=== PATIENT | male | born 1935 | race Caucasian/White ===

== ENCOUNTER → 2017-07-08 | Outpatient (CLI) | payer MEDICARE, SELFPAY ==
[~2017-07-08] MED LIST: ASCO500 PO; ASPI81EC PO; ATEN25; ATOR10 PO; B Complex #11 EACH PO; B-121000 MC2 PO; BETA CAROTENE PO; CEPH500 PO; CIPR500 PO; CLIN300 PO; ELIQUIS5 MG PO; FINA5 PO; FISH OIL 1,2001 EACH PO; FLAX SEED OIL1000 MG PO; FURO40; FURO40 PO; GENTLE IRON PO; HYDACE5 PO; LEVSOD150 PO; LEVSOD175; LEVSOD175 PO; MAGOXI400 PO; METO25ER PO; NAPR500 PO; NITR100CA PO; POTCHL20ER PO; RXHYDACE PO; TAMS.4ER PO; VITAMIN D31000 UNIT PO; ZINC PO; [UNRECOGNIZED DRUG - OTHER]; [UNRECOGNIZED DRUG - REMARK]
== END ==
LOC: LAB EV 18:17
DX: N39.0 Urinary tract infection, site not specified (principal)
CPT/HCPCS: 87077; 87086; 87186

== ENCOUNTER → 2017-09-18 | Outpatient (CLI) | payer MEDICARE, SELFPAY ==
[~2017-09-18] MED LIST changes: -ASCO500 PO; -ATOR10 PO; -B Complex #11 EACH PO; -B-121000 MC2 PO; -BETA CAROTENE PO; -ELIQUIS5 MG PO; -FINA5 PO; -FISH OIL 1,2001 EACH PO; -FLAX SEED OIL1000 MG PO; -GENTLE IRON PO; -LEVSOD150 PO; -MAGOXI400 PO; +ROSU5 PO; -TAMS.4ER PO; -VITAMIN D31000 UNIT PO; -ZINC PO; -[UNRECOGNIZED DRUG - REMARK]
== END | disposition home or self-care (01) ==
LOC: LAB SHORT 11:00 → LAB EV 11:00
DX: R32 Unspecified urinary incontinence (principal)
CPT/HCPCS: 87077; 87086; 87186

== ENCOUNTER → 2017-12-02 | Outpatient (CLI) | payer MEDICARE, SELFPAY | END | disposition home or self-care (01) | LOC: LAB EV 17:47 → LAB SHORT 17:47 | DX: N39.0 Urinary tract infection, site not specified (principal) | CPT/HCPCS: 87077; 87086; 87186 ==

== ENCOUNTER 2018-01-04 11:18 | Inpatient (IN) | payer MEDICARE, SELFPAY ==
[~2018-01-04] VITALS: Ht 193 cm; Wt 104.5 kg
[~2018-01-04 11:18] MED LIST changes: +ATOR10 PO; -ROSU5 PO
[2018-01-04 11:47] LABS: BASOPHILS ABSOLUTE AUTO 0.01 K/mm3 (0.00-0.23); BASOPHILS PERCENT AUTO 0 % (0-2); EOSINOPHILS ABSOLUTE AUTO 0.06 K/mm3 (0.00-0.68); EOSINOPHILS PERCENT AUTO 1 % (0-6); Hematocrit 38.8 % (37.0-53.0); Hemoglobin 13.3 g/dL (13.5-17.5); IMMATURE GRAN ABSOLUTE AUTO 0.02 K/mm3 (0.00-0.10); IMMATURE GRAN PERCENT AUTO 0 % (0-1); LYMPHOCYTES ABSOLUTE AUTO 1.03 K/mm3 (0.84-5.20); LYMPHOCYTES PERCENT AUTO 21 % (21-46); MONOCYTES ABSOLUTE AUTO 0.32 K/mm3 (0.16-1.47); MONOCYTES PERCENT AUTO 7 % (4-13); Mean Corpuscular HGB 32.1 pg (26.0-34.0); Mean Corpuscular HGB Conc 34.3 g/dL (31.5-36.5); Mean Corpuscular Volume 94 fL (80-100); NEUTROPHILS PERCENT AUTO 71 % (41-73); Platelet Count 109 K/mm3 (150-400); RDW Coefficient Variation 12.2 % (11.7-14.2); RDW Standard Deviation 42.2 fL (35.1-46.3); Red Blood Cell Count 4.14 M/mm3 (4.30-5.90); White Blood Cell Count 4.94 K/mm3 (4.00-11.30)
[2018-01-04] MEDS ORDERED: LEVSOD150 PO (11:55)
[2018-01-04 12:00] LABS: Alanine Aminotransfer (ALT/SGP 33 U/L (12-78); Albumin, Blood 3.2 g/dL (3.4-5.0); Albumin/Globulin Ratio 0.9 (0.8-1.8); Alk Phos 40 U/L (50-136); Anion Gap 8 mmol/L (6-16); Aspartate Aminotrans (AST/SGOT 27 U/L (12-37); Bilirubin, Total 0.4 mg/dL (0.1-1.0); Blood Urea Nitrogen 20 mg/dL (8-24); Bun/Creatinine Ratio 24.2 (12.0-20.0); CO2, Blood 25 mmol/L (21-32); Calcium, Blood 8.2 mg/dL (8.5-10.1); Chloride, Blood 108 mmol/L (98-108); Creatinine, Blood 0.83 mg/dL (0.60-1.20); Globulin, Blood 3.4 g/dL (2.2-4.0); Glomerular Filtration Rate >60 (60-); Glucose, Blood 163 mg/dL (70-99); Sodium, Blood 141 mmol/L (136-145); Total Protein, Blood 6.6 g/dL (6.4-8.2); Troponin I 0.019 ng/mL (0.000-0.040)
[2018-01-04] MEDS ORDERED: TAMS.4ER PO (12:00)
[2018-01-04] MEDS ORDERED: ELIQUIS5 MG PO (12:00)
[2018-01-04] MEDS ORDERED: FINA5 PO (12:00)
[2018-01-04] MEDS ORDERED: [UNRECOGNIZED DRUG - REMARK] (12:02)
[2018-01-04] MEDS ORDERED: ASCO500 PO (15:09)
[2018-01-04] MEDS ORDERED: FLAX SEED OIL1000 MG PO (15:10)
[2018-01-04] MEDS ORDERED: MAGOXI400 PO (15:10)
[2018-01-04] MEDS ORDERED: B-121000 MC2 PO (15:11)
[2018-01-04] MEDS ORDERED: BETA CAROTENE PO (15:12)
[2018-01-04] MEDS ORDERED: GENTLE IRON PO (15:13)
[2018-01-04] MEDS ORDERED: FISH OIL 1,2001 EACH PO (15:14)
[2018-01-04] MEDS ORDERED: B Complex #11 EACH PO (15:14)
[2018-01-04] MEDS ORDERED: ZINC PO (15:15)
[2018-01-04] MEDS ORDERED: VITAMIN D31000 UNIT PO (15:16)
[2018-01-05 03:56] LABS: Hematocrit 36.8 % (37.0-53.0); Hemoglobin 12.5 g/dL (13.5-17.5); Mean Corpuscular Volume 94 fL (80-100); Mean Platelet Volume 11.5 fL (9.1-12.4); Platelet Count 98 K/mm3 (150-400); RDW Coefficient Variation 12.3 % (11.7-14.2); Red Blood Cell Count 3.91 M/mm3 (4.30-5.90); White Blood Cell Count 4.71 K/mm3 (4.00-11.30)
[2018-01-05 04:20] LABS: Anion Gap 7 mmol/L (6-16); Blood Urea Nitrogen 21 mg/dL (8-24); CO2, Blood 26 mmol/L (21-32); CPK Creatine Kinase 75 U/L (39-308); Chloride, Blood 111 mmol/L (98-108); Creatinine, Blood 0.78 mg/dL (0.60-1.20); Glomerular Filtration Rate >60 (60-); Glucose, Blood 127 mg/dL (70-99); Magnesium, Blood 2.2 mg/dL (1.6-2.4); Potassium, Blood 4.1 mmol/L (3.5-5.5); Sodium, Blood 144 mmol/L (136-145); Troponin I 0.016 ng/mL (0.000-0.040)
[2018-01-05 04:22] LABS: Creatine Kinase MB < 1.0 ng/mL (0.0-3.6); Creatine Kinase MB Index 1.3 (0.0-4.0)
[2018-01-06 04:09] LABS: International Normalized Ratio 1.11; Prothrombin Time Results 11.4 Sec (9.7-11.5)
[2018-01-08 04:14] LABS: BASOPHILS ABSOLUTE AUTO 0.01 K/mm3 (0.00-0.23); BASOPHILS PERCENT AUTO 0 % (0-2); EOSINOPHILS ABSOLUTE AUTO 0.13 K/mm3 (0.00-0.68); EOSINOPHILS PERCENT AUTO 2 % (0-6); Hematocrit 39.4 % (37.0-53.0); Hemoglobin 13.6 g/dL (13.5-17.5); IMMATURE GRAN ABSOLUTE AUTO 0.02 K/mm3 (0.00-0.10); IMMATURE GRAN PERCENT AUTO 0 % (0-1); LYMPHOCYTES ABSOLUTE AUTO 1.34 K/mm3 (0.84-5.20); LYMPHOCYTES PERCENT AUTO 21 % (21-46); MONOCYTES ABSOLUTE AUTO 0.47 K/mm3 (0.16-1.47); MONOCYTES PERCENT AUTO 7 % (4-13); Mean Corpuscular HGB 32.2 pg (26.0-34.0); Mean Corpuscular HGB Conc 34.5 g/dL (31.5-36.5); Mean Corpuscular Volume 93 fL (80-100); Mean Platelet Volume 11.1 fL (9.1-12.4); NEUTROPHILS ABSOLUTE AUTO 4.44 K/mm3 (1.96-9.15); NEUTROPHILS PERCENT AUTO 69 % (41-73); Platelet Count 102 K/mm3 (150-400); RDW Coefficient Variation 12.1 % (11.7-14.2); RDW Standard Deviation 41.8 fL (35.1-46.3); Red Blood Cell Count 4.22 M/mm3 (4.30-5.90); White Blood Cell Count 6.41 K/mm3 (4.00-11.30)
[2018-01-08 04:52] LABS: Alanine Aminotransfer (ALT/SGP 19 U/L (12-78); Albumin, Blood 2.9 g/dL (3.4-5.0); Albumin/Globulin Ratio 0.8 (0.8-1.8); Alk Phos 32 U/L (50-136); Anion Gap 9 mmol/L (6-16); Aspartate Aminotrans (AST/SGOT 13 U/L (12-37); Bilirubin, Total 0.6 mg/dL (0.1-1.0); Blood Urea Nitrogen 27 mg/dL (8-24); Bun/Creatinine Ratio 37.6 (12.0-20.0); CO2, Blood 25 mmol/L (21-32); Calcium, Blood 8.2 mg/dL (8.5-10.1); Chloride, Blood 107 mmol/L (98-108); Creatinine, Blood 0.72 mg/dL (0.60-1.20); Globulin, Blood 3.5 g/dL (2.2-4.0); Glomerular Filtration Rate >60 (60-); Glucose, Blood 123 mg/dL (70-99); Potassium, Blood 4.2 mmol/L (3.5-5.5); Sodium, Blood 141 mmol/L (136-145); Total Protein, Blood 6.4 g/dL (6.4-8.2)
[2018-01-09] MEDS ORDERED: CEPH500 PO (13:31)
== END 2018-01-09 15:17 | DRG 243 ==
LOC: ER 11:18 → PCU 13:10
PROVIDERS: Emergency Medicine; Family Medicine; Internal Medicine; Internal Medicine Cardiovascular Disease
PROC: 0JH604Z Insertion of Pacemaker, Single Chamber into Chest Subcutaneous Tissue and Fascia, Open Approach (ICD-10-PCS; principal; 2018-01-07)
PROC: 02HK3JZ Insertion of Pacemaker Lead into Right Ventricle, Percutaneous Approach (ICD-10-PCS; 2018-01-07)
DX: I48.0 Paroxysmal atrial fibrillation (principal); I50.22 Chronic systolic (congestive) heart failure; I49.8 Other specified cardiac arrhythmias; I11.0 Hypertensive heart disease with heart failure; E03.9 Hypothyroidism, unspecified; E78.5 Hyperlipidemia, unspecified; N40.0 Benign prostatic hyperplasia without lower urinary tract symptoms; I27.20 Pulmonary hypertension, unspecified; I34.0 Nonrheumatic mitral (valve) insufficiency; D69.6 Thrombocytopenia, unspecified
CPT/HCPCS: 33207; 36415; 71045; 80048; 80053; 82550; 82553; 83735; 83880; 84443; 84484; 85025; 85027; 85610; 86850; 86900; 86901; 93005; 93010; 93306; 94762; 96360; 97116; 97161; 97530; 99152; 99153; 99285-25; C1786; C1898; G8978; G8979; J0690; J1644; J2250; J3010; J7030; J7040; Q9967

== ENCOUNTER → 2018-06-29 | Outpatient (CLI) | payer MEDICARE ==
[~2018-06-29] MED LIST changes: +ASCO500 PO; +B Complex #11 EACH PO; +B-121000 MC2 PO; +BETA CAROTENE PO; +ELIQUIS5 MG PO; +FINA5 PO; +FISH OIL 1,2001 EACH PO; +FLAX SEED OIL1000 MG PO; +GENTLE IRON PO; +LEVSOD150 PO; +MAGOXI400 PO; +TAMS.4ER PO; +VITAMIN D31000 UNIT PO; +ZINC PO; +[UNRECOGNIZED DRUG - REMARK]
== END | disposition home or self-care (01) ==
LOC: LAB SHORT 15:50 → LAB EV 15:50
DX: R35.0 Frequency of micturition (principal)
CPT/HCPCS: 87077; 87086; 87186

== ENCOUNTER 2018-07-05 10:39 | Emergency (ER) | payer MEDICARE ==
[~2018-07-05] VITALS: Ht 180.3 cm; Wt 88.5 kg
[2018-07-05 11:24] LABS: BASOPHILS ABSOLUTE AUTO 0.02 K/mm3 (0.00-0.23); BASOPHILS PERCENT AUTO 0 % (0-2); EOSINOPHILS ABSOLUTE AUTO 0.08 K/mm3 (0.00-0.68); EOSINOPHILS PERCENT AUTO 2 % (0-6); Hemoglobin 13.5 g/dL (13.5-17.5); IMMATURE GRAN ABSOLUTE AUTO 0.01 K/mm3 (0.00-0.10); IMMATURE GRAN PERCENT AUTO 0 % (0-1); LYMPHOCYTES ABSOLUTE AUTO 0.88 K/mm3 (0.84-5.20); LYMPHOCYTES PERCENT AUTO 19 % (21-46); MONOCYTES ABSOLUTE AUTO 0.39 K/mm3 (0.16-1.47); MONOCYTES PERCENT AUTO 8 % (4-13); Mean Corpuscular HGB 31.2 pg (26.0-34.0); Mean Corpuscular HGB Conc 32.9 g/dL (31.5-36.5); Mean Corpuscular Volume 95 fL (80-100); Mean Platelet Volume 11.4 fL (9.1-12.4); NEUTROPHILS PERCENT AUTO 71 % (41-73); Platelet Count 108 K/mm3 (150-400); RDW Coefficient Variation 12.6 % (11.7-14.2); RDW Standard Deviation 43.8 fL (35.1-46.3); Red Blood Cell Count 4.33 M/mm3 (4.30-5.90); White Blood Cell Count 4.68 K/mm3 (4.00-11.30)
[2018-07-05 11:32] LABS: Alanine Aminotransfer (ALT/SGP 21 U/L (12-78); Albumin, Blood 3.3 g/dL (3.4-5.0); Albumin/Globulin Ratio 0.9 (0.8-1.8); Alk Phos 44 U/L (50-136); Anion Gap 8 mmol/L (6-16); Aspartate Aminotrans (AST/SGOT 20 U/L (12-37); Bilirubin, Total 0.5 mg/dL (0.1-1.0); Blood Urea Nitrogen 23 mg/dL (8-24); Bun/Creatinine Ratio 25.9 (12.0-20.0); CO2, Blood 24 mmol/L (21-32); Calcium, Blood 8.3 mg/dL (8.5-10.1); Chloride, Blood 110 mmol/L (98-108); Creatinine, Blood 0.89 mg/dL (0.60-1.20); Globulin, Blood 3.5 g/dL (2.2-4.0); Glomerular Filtration Rate >60 (60-); Glucose, Blood 118 mg/dL (70-99); Potassium, Blood 4.3 mmol/L (3.5-5.5); Sodium, Blood 142 mmol/L (136-145); Total Protein, Blood 6.8 g/dL (6.4-8.2)
== END 2018-07-05 13:51 | disposition home or self-care (01) ==
LOC: ER 10:39
PROVIDERS: Emergency Medicine
DX: N39.0 Urinary tract infection, site not specified (principal); R51 Headache; R42 Dizziness and giddiness; Z88.2 Allergy status to sulfonamides; Z79.899 Other long term (current) drug therapy; I10 Essential (primary) hypertension; I48.91 Unspecified atrial fibrillation; E78.5 Hyperlipidemia, unspecified; E03.9 Hypothyroidism, unspecified
CPT/HCPCS: 36415; 70450; 80053; 85025; 93005; 93010; 99284-25

== ENCOUNTER → 2018-09-07 | Outpatient (CLI) | payer MEDICARE | END | disposition home or self-care (01) | LOC: LAB SHORT 10:27 → LAB EV 10:27 | DX: R35.0 Frequency of micturition (principal) | CPT/HCPCS: 87077; 87086; 87186 ==

== ENCOUNTER 2019-03-12 08:23 | Day surgery (SDC) | payer OTHER, MEDICARE ==
--- NOTE | 2019-03-12 12:27 | NUR ---
1150- Discharge instructions reviewed with patient. Patient verbalizes understanding. Copy given to patient to take home. Discharged via wheelchair to private car for ride home.
== END 2019-03-12 23:52 | disposition home or self-care (01) ==
LOC: RAD 08:23
DX: M51.16 Intervertebral disc disorders with radiculopathy, lumbar region (principal); M48.061 Spinal stenosis, lumbar region without neurogenic claudication; M41.9 Scoliosis, unspecified; M48.07 Spinal stenosis, lumbosacral region; N20.0 Calculus of kidney; N28.1 Cyst of kidney, acquired
CPT/HCPCS: 62304; 72132; Q9966

== ENCOUNTER → 2021-02-09 | Outpatient (CLI) | payer MEDICARE ==
[2021-02-15 17:44] LABS: Prostate Specific Antigen <0.010 ng/mL (0.000-4.000)
== END | disposition home or self-care (01) ==
LOC: LAB SHORT 10:46
PROVIDERS: Physician Assistant
DX: Z12.5 Encounter for screening for malignant neoplasm of prostate (principal); N40.0 Benign prostatic hyperplasia without lower urinary tract symptoms
CPT/HCPCS: G0103

== ENCOUNTER 2021-06-22 05:49 | Inpatient (IN) | payer OTHER ==
[~2021-06-22] VITALS: Ht 193 cm; Wt 95.4 kg
[~2021-06-22 05:49] MED LIST changes: -ATOR10 PO; +ROSU5 PO
[2021-06-22 06:08] LABS: BASOPHILS ABSOLUTE AUTO 0.01 K/mm3 (0.00-0.23); BASOPHILS PERCENT AUTO 0 % (0-2); EOSINOPHILS ABSOLUTE AUTO 0.09 K/mm3 (0.00-0.68); EOSINOPHILS PERCENT AUTO 2 % (0-6); Hematocrit 39.4 % (37.0-53.0); Hemoglobin 13.1 g/dL (13.5-17.5); IMMATURE GRAN ABSOLUTE AUTO 0.01 K/mm3 (0.00-0.10); IMMATURE GRAN PERCENT AUTO 0 % (0-1); LYMPHOCYTES ABSOLUTE AUTO 1.13 K/mm3 (0.84-5.20); LYMPHOCYTES PERCENT AUTO 21 % (21-46); MONOCYTES ABSOLUTE AUTO 0.39 K/mm3 (0.16-1.47); MONOCYTES PERCENT AUTO 7 % (4-13); Mean Corpuscular HGB 31.8 pg (26.0-34.0); Mean Corpuscular HGB Conc 33.2 g/dL (31.5-36.5); Mean Corpuscular Volume 96 fL (80-100); Mean Platelet Volume 11.4 fL (9.1-12.4); NEUTROPHILS ABSOLUTE AUTO 3.86 K/mm3 (1.96-9.15); NEUTROPHILS PERCENT AUTO 70 % (41-73); Platelet Count 93 K/mm3 (150-400); RDW Coefficient Variation 12.9 % (11.7-14.2); RDW Standard Deviation 45.5 fL (35.1-46.3); Red Blood Cell Count 4.12 M/mm3 (4.30-5.90); White Blood Cell Count 5.49 K/mm3 (4.00-11.30)
[2021-06-22 06:23] LABS: International Normalized Ratio 1.08; Prothrombin Time Results 11.3 Sec (9.7-11.5)
[2021-06-22 06:40] LABS: Alanine Aminotransfer (ALT/SGP 22 U/L (12-78); Albumin, Blood 3.3 g/dL (3.4-5.0); Albumin/Globulin Ratio 0.9 (0.8-1.8); Alk Phos 40 U/L (50-136); Anion Gap 9 mmol/L (6-16); Aspartate Aminotrans (AST/SGOT 16 U/L (12-37); Bilirubin, Total 0.4 mg/dL (0.1-1.0); Blood Urea Nitrogen 24 mg/dL (8-24); Bun/Creatinine Ratio 27.4 (12.0-20.0); CO2, Blood 24 mmol/L (21-32); Calcium, Blood 8.6 mg/dL (8.5-10.1); Chloride, Blood 107 mmol/L (98-108); Creatinine, Blood 0.88 mg/dL (0.60-1.20); Globulin, Blood 3.8 g/dL (2.2-4.0); Glomerular Filtration Rate >60 (60-); Glucose, Blood 207 mg/dL (70-99); Potassium, Blood 4.3 mmol/L (3.5-5.5); Sodium, Blood 140 mmol/L (136-145); Total Protein, Blood 7.1 g/dL (6.4-8.2); Troponin I 0.111 ng/mL (0.000-0.040)
[2021-06-22 11:57] LABS: Source, Urine Clean Catch
[2021-06-22 11:59] LABS: Bilirubin, Urine Neg (Neg); Blood, Urine 4+ (Neg); Glucose Qualitative, Urine Neg (Neg); Ketones, Urine Neg (Neg); Leukocyte Esterase, Urine 3+ (Neg); Nitrite, Urine Pos (Neg); Protein, Urine 2+ (Neg); Specific Gravity, Urine 1.015 (1.003-1.022); Urobilinogen, Urine NORM (Normal)
[2021-06-22 12:05] LABS: Appearance, Urine Clear (Clear); Color, Urine Pale Yellow (P-Yellow)
[2021-06-22 12:08] LABS: Amorphous Light (0-Heavy); Bacteria Many /hpf; Mucus Light (0-Heavy); Red Blood Cells, Urine 25-50 /hpf (0-2); Squamous Epithelial Cells Few /hpf (Few)
--- NOTE | 2021-06-22 16:25 | NUR ---
ARRIVES FROM E.R. ALERT. ORIENTED. HAD MID STERNAL C.P W/DIAPHORESIS THIS A.M. WAS GIVEN ONE NTG AND ONE ASA WITH GOOD RELIEF. NPO PER ADMIT DOCTOR FOR CARDIAC CONSULT. PER Harsha HUBER RN HE CALLED AND TALKED TO WHO SAID HE WOULD SEE PATIENT TODAY. DENIES ANY PAIN OR DISCOMFORT. ON 2 LPM OXYGEN. REQUESTS FOOD OFTEN. ADVISED WHY NPO. HEPARIN OFF FOR ONE HOUR DUE TO PTT>139. UNLABORED RESPIRATIONS. TELE ON AND AFIB 57. WCTM
--- NOTE | 2021-06-22 17:25 | NUR ---
TALKED TO DR. WINCHESTER ABOUT PATIENT EATTING. STS CAN EAT DINNER. POSSIBLE NPO AFTER MIDNITE. WILL CHECK AGAIN TO SEE IF PATIENT HAD ELIQUJALEN SHEIKH AM. TO SEE PATIENT AROLDO
--- NOTE | 2021-06-22 17:58 | NUR ---
WAS IN TO SEE PATIENT. TO DO ANGIO ON FRIDAY UNLESS PATIENT HAS ANY PROBLEMS T/O NIGHT. NPO AFTER MIDNITE. GOT CALL FROM LAB AFTER LEFT AND CALLED DR. RIVERA WITH RESULTS OF TROP.
[2021-06-23 04:29] LABS: BASOPHILS ABSOLUTE AUTO 0.02 K/mm3 (0.00-0.23); BASOPHILS PERCENT AUTO 0 % (0-2); EOSINOPHILS ABSOLUTE AUTO 0.11 K/mm3 (0.00-0.68); EOSINOPHILS PERCENT AUTO 2 % (0-6); Hematocrit 39.3 % (37.0-53.0); Hemoglobin 12.8 g/dL (13.5-17.5); IMMATURE GRAN ABSOLUTE AUTO 0.01 K/mm3 (0.00-0.10); IMMATURE GRAN PERCENT AUTO 0 % (0-1); LYMPHOCYTES ABSOLUTE AUTO 1.21 K/mm3 (0.84-5.20); LYMPHOCYTES PERCENT AUTO 25 % (21-46); MONOCYTES ABSOLUTE AUTO 0.45 K/mm3 (0.16-1.47); MONOCYTES PERCENT AUTO 9 % (4-13); Mean Corpuscular HGB Conc 32.6 g/dL (31.5-36.5); Mean Corpuscular Volume 98 fL (80-100); Mean Platelet Volume 11.5 fL (9.1-12.4); NEUTROPHILS ABSOLUTE AUTO 3.11 K/mm3 (1.96-9.15); NEUTROPHILS PERCENT AUTO 63 % (41-73); Platelet Count 85 K/mm3 (150-400); RDW Coefficient Variation 12.8 % (11.7-14.2); RDW Standard Deviation 46.5 fL (35.1-46.3); White Blood Cell Count 4.91 K/mm3 (4.00-11.30)
[2021-06-23 05:26] LABS: Anion Gap 8 mmol/L (6-16); Blood Urea Nitrogen 25 mg/dL (8-24); Bun/Creatinine Ratio 29.1 (12.0-20.0); CO2, Blood 25 mmol/L (21-32); Calcium, Blood 8.3 mg/dL (8.5-10.1); Chloride, Blood 109 mmol/L (98-108); Creatinine, Blood 0.86 mg/dL (0.60-1.20); Glomerular Filtration Rate >60 (60-); Glucose, Blood 109 mg/dL (70-99); Potassium, Blood 4.3 mmol/L (3.5-5.5); Sodium, Blood 142 mmol/L (136-145)
--- NOTE | 2021-06-23 06:07 | NUR ---
Shift notes Patient sleep well during the night, Heparin dripp infusion at 12 units/ kg/ HR. Patient on o2 at 2L N/C. No complaint of pain or disconfort. Able to use bedside comode with assist. No acute changes in patient status. We are continue with monitoring patient.
--- NOTE | 2021-06-23 13:37 | NUR ---
RESTING COMFORTABLY. HEPARIN INFUSING.
--- NOTE | 2021-06-23 13:38 | NUR ---
PHARMACY NOTIFIED PTT IN COMPUTER.
--- NOTE | 2021-06-23 15:44 | NUR ---
ALERT. ORIENTED. PLEASANT. HEPARIN INFUSING AT 12U/KG/HR WITH NO CHANGES IN RATE TODAY. NPO AFTER MIDNITE PER ENVIRONMENTAL AUDITOR RADIO FREQUENCY ENGINEER WILL PROBABLY DO ANGIOGRAM FRIDAY. PER HEART CENTER PROCEDURE WILL BE EITHER FRIDAY OR FRIDAY. COVID TEST DONE. DENIES ANY CHEST DISCOMFORT OR PAIN. UNLABORED RESPIRATIONS. ADJUSTED PATIENT MEDS. TROP TRENDING DOWN. TM
[2021-06-23 16:00] LABS: Influenza A, PCR NEGATIVE (NEGATIVE); Influenza B, PCR NEGATIVE (NEGATIVE); Resp Syncytial Virus, PCR NEGATIVE (NEGATIVE); SARS-Cov-2 (COVID-19) PCR, MMC NEGATIVE (NEGATIVE)
[2021-06-24 04:41] LABS: BASOPHILS ABSOLUTE AUTO 0.02 K/mm3 (0.00-0.23); BASOPHILS PERCENT AUTO 1 % (0-2); EOSINOPHILS ABSOLUTE AUTO 0.13 K/mm3 (0.00-0.68); EOSINOPHILS PERCENT AUTO 3 % (0-6); Hematocrit 36.7 % (37.0-53.0); Hemoglobin 12.4 g/dL (13.5-17.5); IMMATURE GRAN ABSOLUTE AUTO 0.01 K/mm3 (0.00-0.10); IMMATURE GRAN PERCENT AUTO 0 % (0-1); LYMPHOCYTES ABSOLUTE AUTO 0.96 K/mm3 (0.84-5.20); LYMPHOCYTES PERCENT AUTO 22 % (21-46); MONOCYTES ABSOLUTE AUTO 0.39 K/mm3 (0.16-1.47); MONOCYTES PERCENT AUTO 9 % (4-13); Mean Corpuscular HGB 31.9 pg (26.0-34.0); Mean Corpuscular HGB Conc 33.8 g/dL (31.5-36.5); Mean Corpuscular Volume 94 fL (80-100); Mean Platelet Volume 11.4 fL (9.1-12.4); NEUTROPHILS PERCENT AUTO 65 % (41-73); Platelet Count 84 K/mm3 (150-400); RDW Standard Deviation 44.7 fL (35.1-46.3); Red Blood Cell Count 3.89 M/mm3 (4.30-5.90); White Blood Cell Count 4.31 K/mm3 (4.00-11.30)
[2021-06-24 05:32] LABS: Anion Gap 8 mmol/L (6-16); Blood Urea Nitrogen 27 mg/dL (8-24); Bun/Creatinine Ratio 29.6 (12.0-20.0); CO2, Blood 26 mmol/L (21-32); Calcium, Blood 8.5 mg/dL (8.5-10.1); Chloride, Blood 108 mmol/L (98-108); Creatinine, Blood 0.91 mg/dL (0.60-1.20); Glomerular Filtration Rate >60 (60-); Glucose, Blood 134 mg/dL (70-99); Potassium, Blood 4.2 mmol/L (3.5-5.5); Sodium, Blood 142 mmol/L (136-145)
--- NOTE | 2021-06-24 06:18 | NUR ---
EXTERNAL GRINDER TENDER SUMMARY PT HAD NO INCIDENCE OF CHEST PAIN THIS SHIFT. AWAITING ANGIOGRAM TODAY. STARTED ON NS AT 50/HR AND HEPARIN CONTINUED PER PHARMACY TITRATION. PT HAD TWO EPISODES OF INCONTINENCE WHILE ASLEEP. ALERT AND ORIENTED. PLEASANT. NO SOB BUT REQUESTED TO WEAR 2L OF O2 AT NIGHT, IS BASELINE. PT REMAINS PACED ON TELE. NO OTHER CONCERNS THIS SHIFT.
--- NOTE | 2021-06-24 11:38 | NUR ---
PT ARRIVED FROM HEART CENTER AT 1120. DISTAL PULSES PRESENT AND EQUAL, R RADIAL AND R GROIN INTACT, NO HEMATOMA. PT IS AWAKE, ALERT AND ORIENTED X3. NEW ORDERS OBTAINED AND ENACTED. VS ON ARRIVAL: BP 126/63, HR 55, SPO2 96%.
--- NOTE | 2021-06-24 17:25 | NUR ---
PT PICKED UP BY EMS TRANSPORT. ALL PT BELONGINGS IN POSSESSION OF EMS AT TIME OF TRANSPORT. REPORT CALLED TO [facility] IN [place]. RECEIVING NURSE STATED INTENT TO REPORT OFF TO ONCOMING SHIFT PT WILL ARRIVE AFTER SHIFT CHANGE.
== END 2021-06-24 18:30 | disposition short-term general hospital (02) | DRG 281 ==
LOC: ER 05:49 → ERHOLD 05:50 → MEDS 05:50 → PCU 06-24 10:33
PROVIDERS: Emergency Medicine; Internal Medicine Cardiovascular Disease; ADMIT Family Medicine
PROC: B2111ZZ Fluoroscopy of Multiple Coronary Arteries using Low Osmolar Contrast (ICD-10-PCS; principal; 2021-06-24)
DX: I21.4 Non-ST elevation (NSTEMI) myocardial infarction (principal); I50.22 Chronic systolic (congestive) heart failure; I48.20 Chronic atrial fibrillation, unspecified; E03.9 Hypothyroidism, unspecified; N40.0 Benign prostatic hyperplasia without lower urinary tract symptoms; I48.91 Unspecified atrial fibrillation; Z95.0 Presence of cardiac pacemaker; Z88.2 Allergy status to sulfonamides; Z98.890 Other specified postprocedural states; Z98.49 Cataract extraction status, unspecified eye; Z79.899 Other long term (current) drug therapy; I08.0 Rheumatic disorders of both mitral and aortic valves; Z20.822 Contact with and (suspected) exposure to COVID-19
CPT/HCPCS: 0241U; 36415; 71045; 76937; 80048; 80053; 81001; 83880; 84484; 85025; 85347; 85610; 85730; 87077; 87086; 87186; 93005; 93010; 93306; 93454; 96365; 96366; 96375; 96376; 99152; 99153; 99285-25; A9270; C1760; C1769; C1894; G0378; J0696; J1644; J2250; J3010; J7030; J7050; Q9967

== ENCOUNTER 2022-01-29 08:45 | Day surgery (SDC) | payer OTHER ==
[~2022-01-29] VITALS: Ht 190.5 cm; Wt 95.0 kg
[~2022-01-29 08:45] MED LIST changes: +ATOR40TA PO
--- NOTE | 2022-01-29 10:40 | NUR ---
PT LAST ATE AT 0100 AM THIS MORNING
--- NOTE | 2022-01-29 13:12 | NUR ---
PT RETURNED TO RECOVERY ROOM IN BED. LEFT FEMORAL GROIN SITE SOFT WITH NO HEMATOMA, NO BLEEDING AND INTACT DRESSING. PT C/O LEFT FEMORAL "SORENESS" AND CHRONIC BACK DISCOMFORT, BUT NO SHARE LEFT SIDED LOWER BACK PAIN. PT DENIES CHEST PAIN. CALL LIGHT IN REACH.
--- NOTE | 2022-01-29 15:58 | NUR ---
PT DRESSEDF WITH ASSISTANCE. L GROIN SITE STABLE. SALINE LOCK REMOVED WITH CATHETER INTACT. DISCHARGE INSTRUCTIONS REVIEWED WITH PT, VERBALIZES UNDERSTANDING. PT TO PRIVATE VEHICLE PER W/C. PT RIDE WILL BE STAYING WITH PT FOR THE NIGHT. PT HAS NO FURTHE QUESTIONS.
== END 2022-01-29 15:45 | disposition home or self-care (01) ==
LOC: MHTC 08:45
DX: I70.245 Atherosclerosis of native arteries of left leg with ulceration of other part of foot (principal); L97.521 Non-pressure chronic ulcer of other part of left foot limited to breakdown of skin; I70.235 Atherosclerosis of native arteries of right leg with ulceration of other part of foot; L97.519 Non-pressure chronic ulcer of other part of right foot with unspecified severity; R60.0 Localized edema; I25.10 Atherosclerotic heart disease of native coronary artery without angina pectoris; I10 Essential (primary) hypertension; Z95.5 Presence of coronary angioplasty implant and graft; Z87.891 Personal history of nicotine dependence; Z88.2 Allergy status to sulfonamides; Z79.01 Long term (current) use of anticoagulants
CPT/HCPCS: 76937; 85347; 93005; 93010; 99152; 99153; C1725; C1760; C1769; C1887; C1894; J1644; J2250; J3010; J7030; J7040; Q9967

== ENCOUNTER 2022-03-15 04:08 | Observation (INO) | payer OTHER ==
[~2022-03-15] VITALS: Ht 193 cm; Wt 100.3 kg
[~2022-03-15 04:08] MED LIST changes: +ELIQUIS2.5 MG PO; -ELIQUIS5 MG PO
[2022-03-15] MEDS ORDERED: VALSARTAN40 MG PO (04:20)
[2022-03-15] MEDS ORDERED: Potassium Chlo20 ME1 PO (04:20)
[2022-03-15] MEDS ORDERED: FINA5 PO (04:20)
[2022-03-15] MEDS ORDERED: EUTHYROX125 MC1 PO (04:20)
[2022-03-15] MEDS ORDERED: FUROSEMIDE40 MG PO (04:20)
[2022-03-15] MEDS ORDERED: PLAVIX75 MG PO (04:21)
[2022-03-15 05:58] LABS: Albumin, Blood 2.7 g/dL (3.4-5.0); Albumin/Globulin Ratio 0.8 (0.8-1.8); Bilirubin, Total 0.7 mg/dL (0.1-1.0); Bun/Creatinine Ratio 44.2 (12.0-20.0); Calcium, Blood 7.9 mg/dL (8.5-10.1); Creatinine, Blood 0.9 mg/dL (0.60-1.20); Globulin, Blood 3.4 g/dL (2.2-4.0); Potassium, Blood 5.5 mmol/L (3.5-5.5); Total Protein, Blood 6.1 g/dL (6.4-8.2)
[2022-03-15 06:07] LABS: BASOPHILS PERCENT AUTO 0 % (0-2); EOSINOPHILS ABSOLUTE AUTO 0.01 K/mm3 (0.00-0.68); EOSINOPHILS PERCENT AUTO 0 % (0-6); Hematocrit 28.1 % (37.0-53.0); Hemoglobin 9.1 g/dL (13.5-17.5); IMMATURE GRAN ABSOLUTE AUTO 0.02 K/mm3 (0.00-0.10); IMMATURE GRAN PERCENT AUTO 0 % (0-1); LYMPHOCYTES ABSOLUTE AUTO 0.31 K/mm3 (0.84-5.20); LYMPHOCYTES PERCENT AUTO 6 % (21-46); MONOCYTES ABSOLUTE AUTO 0.31 K/mm3 (0.16-1.47); MONOCYTES PERCENT AUTO 6 % (4-13); Mean Corpuscular HGB 31.7 pg (26.0-34.0); Mean Corpuscular HGB Conc 32.4 g/dL (31.5-36.5); Mean Corpuscular Volume 98 fL (80-100); Mean Platelet Volume 11.2 fL (9.1-12.4); NEUTROPHILS ABSOLUTE AUTO 4.39 K/mm3 (1.96-9.15); NEUTROPHILS PERCENT AUTO 87 % (41-73); Platelet Count 100 K/mm3 (150-400); RDW Coefficient Variation 14.1 % (11.7-14.2); RDW Standard Deviation 50.4 fL (35.1-46.3); Red Blood Cell Count 2.87 M/mm3 (4.30-5.90); White Blood Cell Count 5.04 K/mm3 (4.00-11.30)
[2022-03-15 06:17] LABS: Source, Urine Clean Catch
[2022-03-15 06:37] LABS: Appearance, Urine Turbid (Clear); Bilirubin, Urine Neg (Neg); Blood, Urine 5+ (Neg); Color, Urine Brown (P-Yellow); Glucose Qualitative, Urine Neg (Neg); Ketones, Urine Neg (Neg); Leukocyte Esterase, Urine 1+ (Neg); Nitrite, Urine Neg (Neg); Protein, Urine 4+ (Neg); Specific Gravity, Urine 1.015 (1.003-1.022); Urobilinogen, Urine NORM (Normal); pH, Urine 6.5 (5.0-8.0)
[2022-03-15 06:57] LABS: Red Blood Cells, Urine TNTC /hpf (0-2); White Blood Cells, Urine 25-50 /hpf (0-5)
[2022-03-15 06:58] LABS: Bacteria Many /hpf; Squamous Epithelial Cells Not Seen /hpf (Few)
[2022-03-15 15:11] LABS: Hematocrit 28.2 % (37.0-53.0); Hemoglobin 9.4 g/dL (13.5-17.5)
--- NOTE | 2022-03-15 17:03 | NUR ---
Spiritual Care Pt. Request Pt. is aawake in bed and welcomes my visit. Pt. is pleasant but speaks slowly and thoughtfully. Listen empathetically with a calming presence and established rapport. Facilitated a long life review, and prayed with Pt. Pt. displayed evidence of being encouraged. Pt. verbalized gratitude for the spiritual care visit.
--- NOTE | 2022-03-15 19:21 | NUR ---
SHIFT SUMMARY; PATIENT ADMITTED FROM THE ER EARLY THIS AFTERNOON FOR BLEEDING FROM HIS PENIS. HE IS AO X 4 ON ARRIVAL AND ABLE TO ANSWER HISTORY QUESTIONS WITHOIUT DIFFICULTY. PATIENT WORKED WITH PT AND OT SHORTLY AFTER NOON MEAL AND WAS ABLE TO WALK USING HIS FWW AROUND THE ROOM. HE IS CURRENTLY ON 2.5 LITERS O2. HE DENIES ANY CP OR PRESSURE. DOES COMPLAIN OF SWELLING IN HIS LEGS. PATIENT IS COOPERATIVE WITH CARE AND ABLE TO MAKE HIS NEEDS KNOWN. HIS LUNGS ARE COARSE THROUGHOUT AND HE USES PURSED LIP BREATHING. HIS SKIN IS PALE AND DRY WITH 3+PITTING EDEMA TO BILATERAL FEET. HE APPEARS TO SWALLOW WITHOUT DIFFICULTY TAKING PILLS WHOLE WITH WATER. HAND OFF TO JAYJAY KAYE AT [facility] SHIFT CHANGE.
--- NOTE | 2022-03-15 22:15 | NUR ---
BILATERAL SCD'S WERE APPLIED TO THE PATIENTS BLE. AT THAT TIME THE PT REQUESTED THAT HIS R BIG TOE BE WRAPPED UP FOR COMFORT, A HALF A MEPELEX WAS APPLIED TO THE TOP OF THE TOE.
--- NOTE | 2022-03-16 04:40 | NUR ---
3 WAY IBARRA CATHETER INSERTERED FOR CONTINOUS BLADDER IRRIGATION PER DR. GARNER'S ORDER. UPON INSERTION THERE WAS A RETURN FLOW OF DARK RED BLOOD TINGED URINE. UA WAS SENT, CURRENTLY PENDING RESULTS.
[2022-03-16 04:43] LABS: Source, Urine Clean Catch
[2022-03-16 04:45] LABS: Bilirubin, Urine Neg (Neg); Blood, Urine 5+ (Neg); Glucose Qualitative, Urine Neg (Neg); Ketones, Urine 1+ (Neg); Leukocyte Esterase, Urine 2+ (Neg); Nitrite, Urine Neg (Neg); Protein, Urine 4+ (Neg); Urobilinogen, Urine NORM (Normal); pH, Urine 6.5 (5.0-8.0)
[2022-03-16 04:55] LABS: Appearance, Urine Turbid (Clear); Color, Urine Brown (P-Yellow)
[2022-03-16 04:57] LABS: White Blood Cells, Urine 50-100 /hpf (0-5)
[2022-03-16 04:58] LABS: Bacteria Many /hpf; Red Blood Cells, Urine TNTC /hpf (0-2); Squamous Epithelial Cells Rare /hpf (Few)
[2022-03-16 05:07] LABS: BASOPHILS ABSOLUTE AUTO 0.01 K/mm3 (0.00-0.23); BASOPHILS PERCENT AUTO 0 % (0-2); EOSINOPHILS ABSOLUTE AUTO 0.06 K/mm3 (0.00-0.68); EOSINOPHILS PERCENT AUTO 2 % (0-6); Hematocrit 24.7 % (37.0-53.0); Hemoglobin 8.3 g/dL (13.5-17.5); IMMATURE GRAN ABSOLUTE AUTO 0.01 K/mm3 (0.00-0.10); IMMATURE GRAN PERCENT AUTO 0 % (0-1); LYMPHOCYTES PERCENT AUTO 28 % (21-46); MONOCYTES ABSOLUTE AUTO 0.55 K/mm3 (0.16-1.47); MONOCYTES PERCENT AUTO 16 % (4-13); Mean Corpuscular HGB 32.2 pg (26.0-34.0); Mean Corpuscular HGB Conc 33.6 g/dL (31.5-36.5); Mean Corpuscular Volume 96 fL (80-100); Mean Platelet Volume 11.3 fL (9.1-12.4); NEUTROPHILS ABSOLUTE AUTO 1.91 K/mm3 (1.96-9.15); NEUTROPHILS PERCENT AUTO 54 % (41-73); Platelet Count 92 K/mm3 (150-400); RDW Coefficient Variation 14.1 % (11.7-14.2); RDW Standard Deviation 49.1 fL (35.1-46.3); Red Blood Cell Count 2.58 M/mm3 (4.30-5.90); White Blood Cell Count 3.54 K/mm3 (4.00-11.30)
[2022-03-16 05:24] LABS: Bun/Creatinine Ratio 42.5 (12.0-20.0); Calcium, Blood 7.8 mg/dL (8.5-10.1); Creatinine, Blood 0.82 mg/dL (0.60-1.20); Potassium, Blood 4.2 mmol/L (3.5-5.5)
--- NOTE | 2022-03-16 05:54 | NUR ---
SHIFT SUMMARY; PT IS AXO X4, PLEASANT AND RESPONDS TO QUESTIONS APPROPRIATLEY. THE PATINET IS A 2 PERSON ASSIST TO STAND AT THE BEDSIDE TO USE THE URINAL. THROUGHOUT THE SHIFT THE PT REMAINED ON 2.5L O2 VIA NC, WHICH IS BASELINE FOR THE PT OVERNIGHT. THE PTS URINE THROUGHOUT THE NIGHT WAS DARK RED, THE PT DENIES PAIN OR BURING WITH URINATION. CONTINOUS BLADDER IRRIGATION WAS STARTED FOR THE PT PER THE ORDER. OF NOW THE PTS URINE HAS BEGIN TO TURN BROWN RATHER THAN RED. THE PT HAS SCDS IN PLACE, A R KNEE BRACE IN PLACE WELL A HALF A MEPLEX APPLIED TO THE R BIG TOE PER THE PT'S REQUEST. THE PT IS CURRENTLY RESTING IN BED WATCHING TV. THE CALL LIGHT IS IN HAND AND THE BED IS IN THE LOWEST POSITION. PT TAKES PILLS WHOLE WITH WATER. NO SWALLOWING DIFFICULTIES SEEN BY THIS RN OR REPORTED BY THE PT. WILL REPORT TO THE ONCOMING RN.
[2022-03-16 13:28] LABS: Hemoglobin 9.2 g/dL (13.5-17.5)
--- NOTE | 2022-03-16 15:45 | NUR ---
SHIFT SUMMARY PATIENT IS ALERT AND ORIENTATED X4. PATIENT IS PLEASENT AND COOPERATIVE WITH CARE. PATIENT HAS HAD NO ACUTE EVENTS THIS SHIFT. VITAL SIGNS REVIEWED. PATIENT HAS HAD NO COMPLAINTS OF PAIN, NAUSEA, VOMITTING, OR SOB THIS SHIFT. PATIENT WEARS 2.5L OF OXYGEN AT BEDTIME. PATIENT IS A ONE PERSON ASSIST TO BATHROOM USING OWN WALKER IN ROOM. PATIENT IS GETTING BLADDER IRRIGATION TO FLUSH OUT CLOTS. URINE IS LOOKING MORE CLEAR THAN BEGINNING OF SHIFT. BED IN LOCKED AND LOWEST POSITION. CALL LIGHT IN PLACE. WILL MONITOR UNTIL SHIFT CHANGE.
[2022-03-16 21:14] LABS: Hematocrit 27.6 % (37.0-53.0)
--- NOTE | 2022-03-17 04:41 | NUR ---
SHIFT SUMMARY PATIENT HAD NO ACUTE CHANGES. AXOX 3 WITH CONFUSION AT TIMES. ONE TO TWO ASSIST TO BSC. IBARRA PATENT WITH BLADDER IRRIGATION IN PROGRESS. CLEAR YELLOW URINE AT THIS TIME. PIV REMAINS INTACT. ON 2.5 L O2 NC. VSS/AFEBRILE. DENIES CHEST PAIN, SOB, AND N/V. CALL LIGHT IN REACH. BED IN LOWEST POSITION. WILL CONTINUE TO MONITOR UNTIL DAY SHIFT NURSE ASSUMES CARE.
[2022-03-17 05:27] LABS: Hematocrit 25.2 % (37.0-53.0); Hemoglobin 8.4 g/dL (13.5-17.5)
[2022-03-17 07:25] LABS: Hematocrit 26.4 % (37.0-53.0); Hemoglobin 8.8 g/dL (13.5-17.5); Mean Corpuscular HGB 31.9 pg (26.0-34.0); Mean Corpuscular HGB Conc 33.3 g/dL (31.5-36.5); Mean Corpuscular Volume 96 fL (80-100); Mean Platelet Volume 11.4 fL (9.1-12.4); Platelet Count 105 K/mm3 (150-400); RDW Coefficient Variation 13.9 % (11.7-14.2); RDW Standard Deviation 48.1 fL (35.1-46.3); Red Blood Cell Count 2.76 M/mm3 (4.30-5.90); White Blood Cell Count 3.75 K/mm3 (4.00-11.30)
[2022-03-17 07:39] LABS: Bun/Creatinine Ratio 38.1 (12.0-20.0); Calcium, Blood 7.9 mg/dL (8.5-10.1); Creatinine, Blood 0.79 mg/dL (0.60-1.20); Potassium, Blood 4.1 mmol/L (3.5-5.5)
--- NOTE | 2022-03-17 17:13 | NUR ---
SHIFT SUMMARY PATIENT IS ALERT AND ORIENTED. PATIENT HAS NOT HAD ANY ACUTE EVENTS THIS SHIFT. VITAL SIGNS REVIEWED. PATIENT HAS HAD BLADDER IRRIGATION DCD THIS. IBARRA CATHETER HAS BEEN DCD. PATIENT HAS HAD NO COMPLAINTS OF SOB, NAUSEA, VOMITTING OR PAIN THIS SHIFT. BED IN LOCKED AND LOWEST POSITION.
--- NOTE | 2022-03-18 04:27 | NUR ---
SHIFT SUMMARY PATIENT HAD NO ACUTE CHANGES OBSERVED. AXOX 3-4 WITH CONFUSION AT TIMES. LESS THIS SHIFT. WILL CALL APPROPRIATELY. ONE ASSIST TO STAND W/FWW TO USE URINAL AT BEDSIDE. VOIDING T/O SHIFT CLEAR YELLOW-SLIGHT BRN URINE. DENIES PAIN, SOB, AND N/V. VSS/AFEBRILE. PIV REMAINS INTACT. ON 2.5 L O2 NC. COOPERATIVE WITH CARE. CALL LIGHT IN REACH. BED IN LOWEST POSITION. WILL CONTINUE TO MONITOR UNTIL DAY SHIFT NURSE ASSUMES CARE.
[2022-03-18 05:19] LABS: BASOPHILS ABSOLUTE AUTO 0.01 K/mm3 (0.00-0.23); BASOPHILS PERCENT AUTO 0 % (0-2); EOSINOPHILS ABSOLUTE AUTO 0.11 K/mm3 (0.00-0.68); EOSINOPHILS PERCENT AUTO 3 % (0-6); Hematocrit 25.4 % (37.0-53.0); Hemoglobin 8.7 g/dL (13.5-17.5); IMMATURE GRAN ABSOLUTE AUTO 0.01 K/mm3 (0.00-0.10); IMMATURE GRAN PERCENT AUTO 0 % (0-1); LYMPHOCYTES ABSOLUTE AUTO 1.09 K/mm3 (0.84-5.20); LYMPHOCYTES PERCENT AUTO 26 % (21-46); MONOCYTES ABSOLUTE AUTO 0.39 K/mm3 (0.16-1.47); MONOCYTES PERCENT AUTO 9 % (4-13); Mean Corpuscular HGB 32.1 pg (26.0-34.0); Mean Corpuscular HGB Conc 34.3 g/dL (31.5-36.5); Mean Corpuscular Volume 94 fL (80-100); Mean Platelet Volume 11.5 fL (9.1-12.4); NEUTROPHILS ABSOLUTE AUTO 2.58 K/mm3 (1.96-9.15); NEUTROPHILS PERCENT AUTO 62 % (41-73); Platelet Count 107 K/mm3 (150-400); RDW Coefficient Variation 13.9 % (11.7-14.2); RDW Standard Deviation 46.9 fL (35.1-46.3); Red Blood Cell Count 2.71 M/mm3 (4.30-5.90); White Blood Cell Count 4.19 K/mm3 (4.00-11.30)
--- NOTE | 2022-03-18 12:39 | NUR ---
PATIENT IS PLEASANT, LOVING INTERACTION AND CONVERSATION. HE IS SOB WITH ACTIVITY. OXYGEN PLACED BACK ON WITH RELIEF. OT PRESENT AND THE PATIENT AMBULATED ABOUT 25 FEET, BECOMING SOB. PATIENTS URINE IS CLEAR AND HE DENIES PAIN WITH URINATION.
[2022-03-18] MEDS ORDERED: CEFD300 PO (16:03)
--- NOTE | 2022-03-18 17:18 | NUR ---
PATIENT DISCHARGED THIS EVENING, TO HOME WITH HOME HEALTH. HE WAS TRANSPORTED BY PULP OPERATOR, AFTER REVIEWING DISCHARGE PAPERWORK INCLUDING PATIENT EDUCATION, MEDICATIONS, AND FOLLOW UP APPOINTMENTS. PATIENT IV WAS DISCONTINUED THIS AM, AFTER IT HAD INFILTRATED. PATIENT WAS INFORMED THAT SCRIPTS WERE SENT TO [facility] AND HE PLANNED TO PICK THEM UP ON HIS WAY HOME.
== END 2022-03-18 16:37 | disposition home health service (06) ==
LOC: ER 04:08 → MEDS 04:09
PROVIDERS: Emergency Medicine; Internal Medicine; ADMIT Internal Medicine
DX: R31.0 Gross hematuria (principal); D62 Acute posthemorrhagic anemia; E78.00 Pure hypercholesterolemia, unspecified; I48.91 Unspecified atrial fibrillation; I11.0 Hypertensive heart disease with heart failure; I50.22 Chronic systolic (congestive) heart failure; E78.5 Hyperlipidemia, unspecified; E03.9 Hypothyroidism, unspecified; I25.10 Atherosclerotic heart disease of native coronary artery without angina pectoris; Z95.0 Presence of cardiac pacemaker; Z88.2 Allergy status to sulfonamides; Z79.01 Long term (current) use of anticoagulants
CPT/HCPCS: 36415; 51701; 80048; 80053; 81001; 85014; 85018; 85025; 85027; 86850; 86900; 86901; 87077; 87086; 87186; 96365; 96376; 97110; 97116; 97162; 97166; 97530; 97535; 99284; A9270; G0378; J0696; J7050

== ENCOUNTER 2022-10-08 18:51 | Emergency (ER) | payer OTHER ==
[~2022-10-08] VITALS: Ht 188 cm; Wt 92.5 kg
[~2022-10-08 18:51] MED LIST changes: +CEFD300 PO; +EUTHYROX125 MC1 PO; +FUROSEMIDE40 MG PO; +PLAVIX75 MG PO; +Potassium Chlo20 ME1 PO; +VALSARTAN40 MG PO
[2022-10-08] MEDS ORDERED: PLAVIX75 MG PO (19:42)
[2022-10-08] MEDS ORDERED: FERROUS SULFAT325 M3 PO (19:43)
[2022-10-08 22:00] VITALS: BP 144/69
== END 2022-10-08 22:18 | disposition home or self-care (01) ==
LOC: ER 18:51
DX: R07.89 Other chest pain (principal); I10 Essential (primary) hypertension; E03.9 Hypothyroidism, unspecified; N40.0 Benign prostatic hyperplasia without lower urinary tract symptoms; I25.10 Atherosclerotic heart disease of native coronary artery without angina pectoris; Z88.2 Allergy status to sulfonamides; Z79.899 Other long term (current) drug therapy; Z79.890 Hormone replacement therapy; Z95.810 Presence of automatic (implantable) cardiac defibrillator
CPT/HCPCS: 71046; 99283-25; A9270

== ENCOUNTER 2023-04-20 00:58 | Inpatient (IN) | payer OTHER, BC ==
[~2023-04-20] VITALS: Ht 182.9 cm; Wt 88.1 kg
[~2023-04-20 00:58] MED LIST changes: -B-121000 MC2 PO; +B-121000 MC7 PO; +EUTHYROX112 MC1 PO; -EUTHYROX125 MC1 PO; +FERROUS SULFAT325 M3 PO
[2023-04-20 01:31] LABS: BASOPHILS ABSOLUTE AUTO 0.02 K/mm3 (0.00-0.23); BASOPHILS PERCENT AUTO 0 % (0-2); EOSINOPHILS PERCENT AUTO 0 % (0-6); Hematocrit 39.5 % (37.0-53.0); Hemoglobin 13.1 g/dL (13.5-17.5); IMMATURE GRAN ABSOLUTE AUTO 0.06 K/mm3 (0.00-0.10); IMMATURE GRAN PERCENT AUTO 1 % (0-1); LYMPHOCYTES ABSOLUTE AUTO 0.45 K/mm3 (0.84-5.20); LYMPHOCYTES PERCENT AUTO 3 % (21-46); MONOCYTES ABSOLUTE AUTO 0.86 K/mm3 (0.16-1.47); MONOCYTES PERCENT AUTO 7 % (4-13); Mean Corpuscular HGB 32.6 pg (26.0-34.0); Mean Corpuscular HGB Conc 33.2 g/dL (31.5-36.5); Mean Corpuscular Volume 98 fL (80-100); Mean Platelet Volume 11.3 fL (9.1-12.4); NEUTROPHILS ABSOLUTE AUTO 11.81 K/mm3 (1.96-9.15); NEUTROPHILS PERCENT AUTO 89 % (41-73); Platelet Count 121 K/mm3 (150-400); RDW Coefficient Variation 13.1 % (11.7-14.2); RDW Standard Deviation 47.6 fL (35.1-46.3); Red Blood Cell Count 4.02 M/mm3 (4.30-5.90)
[2023-04-20 01:45] LABS: Albumin, Blood 3.3 g/dL (3.4-5.0); Albumin/Globulin Ratio 0.8 (0.8-1.8); Bilirubin, Total 1.2 mg/dL (0.1-1.0); Calcium, Blood 8.6 mg/dL (8.5-10.1); Creatinine, Blood 0.93 mg/dL (0.60-1.20); Globulin, Blood 4.1 g/dL (2.2-4.0); Magnesium, Blood 1.9 mg/dL (1.6-2.4); Potassium, Blood 4.2 mmol/L (3.5-5.5); Total Protein, Blood 7.4 g/dL (6.4-8.2)
[2023-04-20 02:15] LABS: International Normalized Ratio 1.19; Prothrombin Time Results 12.4 Sec (9.7-11.5)
[2023-04-20 02:39] LABS: Influenza A, PCR NEGATIVE (NEGATIVE); Influenza B, PCR NEGATIVE (NEGATIVE); Resp Syncytial Virus, PCR NEGATIVE (NEGATIVE); SARS-Cov-2 (COVID-19) PCR, MMC NEGATIVE (NEGATIVE)
[2023-04-20 03:00] LABS: Source, Urine Clean Catch
[2023-04-20 03:04] LABS: Bilirubin, Urine Neg (Neg); Blood, Urine 3+ (Neg); Glucose Qualitative, Urine Neg (Neg); Ketones, Urine Neg (Neg); Leukocyte Esterase, Urine 3+ (Neg); Nitrite, Urine Neg (Neg); Protein, Urine 2+ (Neg); Urobilinogen, Urine NORM (Normal)
[2023-04-20 03:18] LABS: Appearance, Urine Cloudy (Clear); Color, Urine Yellow (P-Yellow)
[2023-04-20 03:27] LABS: Bacteria Many /hpf; Red Blood Cells, Urine 0-2 /hpf (0-2); Squamous Epithelial Cells Rare /hpf (Few); White Blood Cells, Urine TNTC /hpf (0-5)
[2023-04-20] MEDS ORDERED: Ventolin/Prove6.7 GM INH (04:37)
[2023-04-20 05:32] VITALS: BP 120/73
[2023-04-20 07:51] VITALS: BP 122/68
[2023-04-20 09:15] VITALS: BP 119/101
[2023-04-20 19:20] VITALS: BP 109/66
--- NOTE | 2023-04-20 20:05 | NUR ---
SHIFT SUMMARY A&O X 3-4, VSS. PT IS ABLE TO EASILY SWALLOW PILLS WITH WATER AND IS QUITE HUNGRY. PLACED CALL TO MD, ORDERS RECEIVED FOR A REG DIET. PT RECEIVED LUNCH TRAY AND ATE ALL OF HIS LUNCH. HAS BEEN MOSTLY RESTING QUIETLY WITH EYES CLOSED, RESP EVEN & UNLABORED. PT PARTICIPATED WITH PT. PT IS [place]. [employer] DID KIDNEY & BLADDER US, REPORT ON CHART. IS PLEASANT & COOPERATIVE WITH ALL CARE. IS INCONT OF URINE. CONDOM CATH WOULD NOT REMAIN IN PLACE.
[2023-04-21 02:12] VITALS: BP 100/67
--- NOTE | 2023-04-21 06:32 | NUR ---
SHIFT SUMMARY: PT IS ADMITTED FOR SEPSIS AND IS A FULL CODE. IS ALERT AND ABLE TO MAKE MOST NEEDS KNOWN. WAS NOTED TO HAVE PERIODS OF MILD CONFUSION THROUGH SHIFT. ADLs HAVE BEEN 1P MIN-MOD DEPENDING ON ACTIVITY. BUT STAYED IN BED THROUGH SHIFT. DENIES PAIN WHEN ASKED. IVS TO BOTH LOWER ARMS ARE PATENT WITH DRESSING THAT ARE CDI. TELLY REPORTS AFIB V-PACED @ 58. CONDOM CATH IN PLACE. LAB REPORTED GRAM POS COCCI WITH CLUSTERS GROWTH FROM BLOOD CULTURES. WAS TO START ROCEPHIN 1G QD THIS AM. SPOKE WITH PHARMACY. THEY REPORTED IN THE PAST CULTURED ORGANISMS RESPONDED TO 2G ROCEPHIN BETTER THAN 1G. CURRENTLY WAITING ON SENSITIVITIES. REPORTED THIS INFORMATION TO DR MENJIVAR. HE GAVE TEL ORDER TO CHANGE ROCEPHIN TO 2G. LATER IN THE SHIFT WAS REPORTED THAT GRAM POS COCCOBACILLI WAS REPORTED FROM [facility]. WAS ALSO INFORMED THAT DUE TO THE TWO DIFFERENT GROWTH ORGANISMS THERE MIGHT BE A CONTAMINATE. SPOKE WITH PHARMACY. ROCEPHIN PROBABLY DOES NOT COVER THIS SECOND ORGANISM. SPOKE WITH DR BONILLA REPORTED BOTH ORGANISMS THE CHANGE BY DR MENJIVAR AND REPORT FROM [facility]. WHEN ASKED WHAT DIRECTION HE WANTED TO GO HE STATED "NOPE, SOUNDS GOOD. WE WILL WATCH IT."
[2023-04-21 09:25] LABS: BASOPHILS ABSOLUTE AUTO 0.02 K/mm3 (0.00-0.23); BASOPHILS PERCENT AUTO 0 % (0-2); EOSINOPHILS ABSOLUTE AUTO 0.02 K/mm3 (0.00-0.68); EOSINOPHILS PERCENT AUTO 0 % (0-6); Hematocrit 37.1 % (37.0-53.0); Hemoglobin 12.4 g/dL (13.5-17.5); IMMATURE GRAN ABSOLUTE AUTO 0.03 K/mm3 (0.00-0.10); IMMATURE GRAN PERCENT AUTO 0 % (0-1); LYMPHOCYTES ABSOLUTE AUTO 0.81 K/mm3 (0.84-5.20); LYMPHOCYTES PERCENT AUTO 11 % (21-46); MONOCYTES ABSOLUTE AUTO 0.57 K/mm3 (0.16-1.47); MONOCYTES PERCENT AUTO 8 % (4-13); Mean Corpuscular HGB 33.1 pg (26.0-34.0); Mean Corpuscular HGB Conc 33.4 g/dL (31.5-36.5); Mean Corpuscular Volume 99 fL (80-100); Mean Platelet Volume 11.5 fL (9.1-12.4); NEUTROPHILS PERCENT AUTO 81 % (41-73); Platelet Count 93 K/mm3 (150-400); RDW Coefficient Variation 13.3 % (11.7-14.2); RDW Standard Deviation 48.6 fL (35.1-46.3); Red Blood Cell Count 3.75 M/mm3 (4.30-5.90); White Blood Cell Count 7.65 K/mm3 (4.00-11.30)
[2023-04-21 09:51] LABS: Bun/Creatinine Ratio 30.9 (12.0-20.0); Calcium, Blood 8.2 mg/dL (8.5-10.1); Creatinine, Blood 0.94 mg/dL (0.60-1.20); Potassium, Blood 3.8 mmol/L (3.5-5.5)
--- NOTE | 2023-04-21 15:49 | NUR ---
SHIFT SUMMARY PT AWAKE DURING SHIFT REPORT THIS AM. HUSLIA, BUT A&O, PLEASANT AND CO-OP. PER SHIFT NOC SHIFT REPORT, LAB CALLED WITH +BCX'S. ADDITIONAL IV ABX ORDERED. SWALLOW EVAL DONE EARLY THIS AM; PT ABLE TO HAVE REGULAR DIET AND LIQUIDS. NO CHOKING OR COUGHING NOTED. CONDOM CATH IN PLACE WITH MINIMAL OUTPUT NOTED ON NOC SHIFT. BLADDER SCAN DONE SHOWING 406 WITH PT THEN VOIDING 300cc AFTER GENTLE PRESSURE APPLIED TO BLADDER. PT TO BE BLADDER SCANNED AGAIN LATER THIS AFTERNOON, WHEN BACK IN BED. P/T IN TO SEE PT AND ATTEMPTED TO AMBULATE PT IN . PT VERY WEAK AND UNSTEADY, REPORTING TO THERAPY THAT HE WAS MUCH WEAKER THAN HE THOUGHT. PT NOW SITTING UP IN CHAIR AT BS WATCHING TV. P/T RECOMMENDING MORE TIME WITH THERAPY IN HOSPITAL OR AT SNF. POSSIBLE D/C TOMORROW. NO C/O PAIN. DENIED FURTHER NEEDS. CALL LT IN REACH.
[2023-04-21 20:10] VITALS: BP 91/50
--- NOTE | 2023-04-22 05:11 | NUR ---
NOC SHIFT SUMMARY: PATIENT ALERT AND ORIENTED X4. NO C/O PAIN. POSSIBLE DISCHARGE HOME TODAY WITH HOME HEALTH. CALL LIGHT WITHIN REACH. BED IN LOW POSITION.
[2023-04-22 05:43] LABS: BASOPHILS ABSOLUTE AUTO 0.01 K/mm3 (0.00-0.23); BASOPHILS PERCENT AUTO 0 % (0-2); EOSINOPHILS ABSOLUTE AUTO 0.11 K/mm3 (0.00-0.68); EOSINOPHILS PERCENT AUTO 2 % (0-6); Hematocrit 34.2 % (37.0-53.0); Hemoglobin 11.2 g/dL (13.5-17.5); IMMATURE GRAN ABSOLUTE AUTO 0.01 K/mm3 (0.00-0.10); IMMATURE GRAN PERCENT AUTO 0 % (0-1); LYMPHOCYTES ABSOLUTE AUTO 1.01 K/mm3 (0.84-5.20); LYMPHOCYTES PERCENT AUTO 18 % (21-46); MONOCYTES ABSOLUTE AUTO 0.45 K/mm3 (0.16-1.47); MONOCYTES PERCENT AUTO 8 % (4-13); Mean Corpuscular HGB 31.7 pg (26.0-34.0); Mean Corpuscular HGB Conc 32.7 g/dL (31.5-36.5); Mean Corpuscular Volume 97 fL (80-100); Mean Platelet Volume 11.7 fL (9.1-12.4); NEUTROPHILS ABSOLUTE AUTO 4.09 K/mm3 (1.96-9.15); NEUTROPHILS PERCENT AUTO 72 % (41-73); Platelet Count 88 K/mm3 (150-400); RDW Coefficient Variation 13.2 % (11.7-14.2); Red Blood Cell Count 3.53 M/mm3 (4.30-5.90); White Blood Cell Count 5.68 K/mm3 (4.00-11.30)
[2023-04-22 06:20] LABS: Albumin, Blood 2.5 g/dL (3.4-5.0); Albumin/Globulin Ratio 0.7 (0.8-1.8); Bilirubin, Total 0.5 mg/dL (0.1-1.0); Calcium, Blood 7.7 mg/dL (8.5-10.1); Globulin, Blood 3.5 g/dL (2.2-4.0); Potassium, Blood 3.8 mmol/L (3.5-5.5)
[2023-04-22 07:25] VITALS: BP 125/68
[2023-04-22 15:11] VITALS: BP 119/72
[2023-04-22 19:47] VITALS: BP 124/69
[2023-04-23 04:49] VITALS: BP 134/72
[2023-04-23 05:10] LABS: BASOPHILS ABSOLUTE AUTO 0.01 K/mm3 (0.00-0.23); BASOPHILS PERCENT AUTO 0 % (0-2); EOSINOPHILS ABSOLUTE AUTO 0.16 K/mm3 (0.00-0.68); EOSINOPHILS PERCENT AUTO 3 % (0-6); Hematocrit 33.7 % (37.0-53.0); Hemoglobin 11.5 g/dL (13.5-17.5); IMMATURE GRAN ABSOLUTE AUTO 0.01 K/mm3 (0.00-0.10); IMMATURE GRAN PERCENT AUTO 0 % (0-1); LYMPHOCYTES ABSOLUTE AUTO 0.89 K/mm3 (0.84-5.20); LYMPHOCYTES PERCENT AUTO 19 % (21-46); MONOCYTES PERCENT AUTO 9 % (4-13); Mean Corpuscular HGB 32.8 pg (26.0-34.0); Mean Corpuscular HGB Conc 34.1 g/dL (31.5-36.5); Mean Corpuscular Volume 96 fL (80-100); NEUTROPHILS ABSOLUTE AUTO 3.25 K/mm3 (1.96-9.15); NEUTROPHILS PERCENT AUTO 69 % (41-73); Platelet Count 92 K/mm3 (150-400); RDW Standard Deviation 45.4 fL (35.1-46.3); Red Blood Cell Count 3.51 M/mm3 (4.30-5.90); White Blood Cell Count 4.72 K/mm3 (4.00-11.30)
[2023-04-23 05:29] LABS: Bun/Creatinine Ratio 36.1 (12.0-20.0); Creatinine, Blood 0.83 mg/dL (0.60-1.20); Potassium, Blood 4.2 mmol/L (3.5-5.5)
--- NOTE | 2023-04-23 06:36 | NUR ---
NOC SHIFT SUMMARY: PATIENT IS A&O 4. PATIENT CALLS APPROPRIATLEY. NO C/O PAIN. PHYSICAL THERAPY RECOMMENDING SNF PLACEMENT, PATIENT DOES NOT WANT TO DO THIS AND WOULD PREFER TO GO HOME WITH HOME HEALTH. POSSIBLE DISCHARGE TODAY. CALL LIGHT WITHIN REACH. BED IN LOW POSITION.
[2023-04-23 07:19] VITALS: BP 129/78
--- NOTE | 2023-04-23 09:43 | NUR ---
NOTE AFTER MEETING WITH DR MCKEON THIS MORNING, PT HAS DECIDED TO "PROVE" TO EVERYONE THAT HE CAN HOME ALONE. PT HAS NO SUPPORT, MEALS OR TRANSPORT. HE HAS CLIMBED OOB X3. SET THE CHAIR ALARM OFF. STRETCHED THE IV TUBING AND TIPPED THE IV POLE OVER. WHEN ENVIRONMENTAL TECH RESPONDED TO ALARM PT STATED," WATCH IT OR WE'RE GOING TO GO ROUNDS." SHE ATTEMPTED TO DEFUSE THE ATTITUDE. HE STATED," SEE!M I CAN TOO GO HOMER ALONE." AFTER TALKING WITH PT, HE DOESN'T EXPRESS HIS IDEAS WELL. HE DOESN'T FINISH HIS SENTENCES/THOUGHTS BUT THINKS HE HAS. THEN GETS FRUSTRATED WHEN STAFF REPEAT BACK WHAT HE SAID. HE INITIALLY SAID THAT HE W[facility]. THEN HE STATED HE WOULD GO TO CARDIAC REHAB HERE ON [address]. HE IS NOT CLEAR ABOUT WHAT HE WANTS OR IS WILLING TO DO OTHER THAN GO HOME ALONE. CONTINUE POC.
[2023-04-23] MEDS ORDERED: CLOP75 PO (11:05)
[2023-04-23] MEDS ORDERED: CEFP200 PO (11:05)
--- NOTE | 2023-04-23 11:51 | NUR ---
DISCHARGE PT DISCAHRGED HOME. IV X2 REMOVED PRESSURE DRESSING APPLIED. PERSCRIPTIONS FAXED TO [facility] PER PT REQUEST. CONTINUE POC.
== END 2023-04-23 11:52 | disposition home health service (06) | DRG 871 ==
LOC: ER 00:58 → MEDS 03:38 → ENPENDDIS 04-23 10:21 → MEDS 04-23 11:52
PROVIDERS: Emergency Medicine; Internal Medicine; ADMIT Internal Medicine
DX: A41.51 Sepsis due to Escherichia coli [E. coli] (principal); I50.23 Acute on chronic systolic (congestive) heart failure; N39.0 Urinary tract infection, site not specified; I48.21 Permanent atrial fibrillation; I48.91 Unspecified atrial fibrillation; N40.0 Benign prostatic hyperplasia without lower urinary tract symptoms; I11.0 Hypertensive heart disease with heart failure; E78.5 Hyperlipidemia, unspecified; I73.9 Peripheral vascular disease, unspecified; E89.0 Postprocedural hypothyroidism; S00.81XA Abrasion of other part of head, initial encounter; W18.30XA Fall on same level, unspecified, initial encounter; B95.8 Unspecified staphylococcus as the cause of diseases classified elsewhere; I25.10 Atherosclerotic heart disease of native coronary artery without angina pectoris; Z86.73 Personal history of transient ischemic attack (TIA), and cerebral infarction without residual deficits; Z86.16 Personal history of COVID-19; Z95.0 Presence of cardiac pacemaker; Z88.2 Allergy status to sulfonamides; Z79.02 Long term (current) use of antithrombotics/antiplatelets; Z79.890 Hormone replacement therapy; Z98.890 Other specified postprocedural states; Z11.52 Encounter for screening for COVID-19
CPT/HCPCS: 0241U; 36415; 70450; 71045; 72125; 76770; 80048; 80053; 81001; 82947; 83605; 83690; 83735; 83880; 84145; 84484; 85025; 85610; 87040; 87077; 87086; 87186; 92610; 93005; 93010; 93306; 94760; 96361; 96374; 97110; 97116; 97161; 97166; 97530; 97535; 99285-25; A9270; J0456; J0696; J1650; J7030; J7050

== ENCOUNTER 2023-07-18 13:12 | Emergency (ER) | payer OTHER ==
[~2023-07-18] VITALS: Ht 188 cm; Wt 93.0 kg
[~2023-07-18 13:12] MED LIST changes: +CEFP200 PO; +CLOP75 PO; +Ventolin/Prove6.7 GM INH
[2023-07-18 14:08] LABS: BASOPHILS ABSOLUTE AUTO 0.02 K/mm3 (0.00-0.23); BASOPHILS PERCENT AUTO 0 % (0-2); EOSINOPHILS ABSOLUTE AUTO 0.06 K/mm3 (0.00-0.68); EOSINOPHILS PERCENT AUTO 1 % (0-6); Hematocrit 37.5 % (37.0-53.0); Hemoglobin 12.1 g/dL (13.5-17.5); IMMATURE GRAN ABSOLUTE AUTO 0.02 K/mm3 (0.00-0.10); IMMATURE GRAN PERCENT AUTO 0 % (0-1); LYMPHOCYTES ABSOLUTE AUTO 0.88 K/mm3 (0.84-5.20); LYMPHOCYTES PERCENT AUTO 19 % (21-46); MONOCYTES ABSOLUTE AUTO 0.51 K/mm3 (0.16-1.47); MONOCYTES PERCENT AUTO 11 % (4-13); Mean Corpuscular HGB 30.6 pg (26.0-34.0); Mean Corpuscular HGB Conc 32.3 g/dL (31.5-36.5); Mean Corpuscular Volume 95 fL (80-100); Mean Platelet Volume 11.1 fL (9.1-12.4); NEUTROPHILS ABSOLUTE AUTO 3.25 K/mm3 (1.96-9.15); NEUTROPHILS PERCENT AUTO 69 % (41-73); Platelet Count 122 K/mm3 (150-400); RDW Coefficient Variation 14.6 % (11.7-14.2); Red Blood Cell Count 3.95 M/mm3 (4.30-5.90); White Blood Cell Count 4.74 K/mm3 (4.00-11.30)
[2023-07-18 14:19] LABS: Albumin/Globulin Ratio 0.8 (0.8-1.8); Bilirubin, Total 0.9 mg/dL (0.1-1.0); Bun/Creatinine Ratio 30.4 (12.0-20.0); Calcium, Blood 8.6 mg/dL (8.5-10.1); Creatinine, Blood 0.76 mg/dL (0.60-1.20); Potassium, Blood 4.2 mmol/L (3.5-5.5)
[2023-07-18 14:45] LABS: International Normalized Ratio 1.19; Prothrombin Time Results 12.4 Sec (9.7-11.5)
[2023-07-18 16:00] VITALS: BP 147/60
== END 2023-07-18 16:10 | disposition home or self-care (01) ==
LOC: ER 13:12
PROVIDERS: Emergency Medicine; Student in an Organized Health Care Education/Training Program
DX: J90 Pleural effusion, not elsewhere classified (principal); Z88.2 Allergy status to sulfonamides; Z79.899 Other long term (current) drug therapy; I10 Essential (primary) hypertension; I48.91 Unspecified atrial fibrillation; E78.5 Hyperlipidemia, unspecified; E03.9 Hypothyroidism, unspecified; I25.10 Atherosclerotic heart disease of native coronary artery without angina pectoris
CPT/HCPCS: 80053; 85025; 85610; 93005; 93010; 99284-25

== ENCOUNTER 2023-12-17 15:10 | Emergency (ER) | payer OTHER ==
[~2023-12-17] VITALS: Ht 190.5 cm; Wt 95.2 kg
[~2023-12-17 15:10] MED LIST changes: +POTCHL20ER; +VALS80 PO
[2023-12-17] MEDS ORDERED: Lactated Ringer's 1,000 ML IV ONE ×2 (15:25)
[2023-12-17 16:10] LABS: BASOPHILS ABSOLUTE AUTO 0.02 K/mm3 (0.00-0.23); BASOPHILS PERCENT AUTO 0 % (0-2); EOSINOPHILS ABSOLUTE AUTO 0.01 K/mm3 (0.00-0.68); EOSINOPHILS PERCENT AUTO 0 % (0-6); Hematocrit 38.6 % (37.0-53.0); Hemoglobin 12.5 g/dL (13.5-17.5); IMMATURE GRAN ABSOLUTE AUTO 0.02 K/mm3 (0.00-0.10); IMMATURE GRAN PERCENT AUTO 0 % (0-1); LYMPHOCYTES ABSOLUTE AUTO 0.66 K/mm3 (0.84-5.20); LYMPHOCYTES PERCENT AUTO 11 % (21-46); MONOCYTES ABSOLUTE AUTO 0.49 K/mm3 (0.16-1.47); MONOCYTES PERCENT AUTO 8 % (4-13); Mean Corpuscular HGB 30.9 pg (26.0-34.0); Mean Corpuscular HGB Conc 32.4 g/dL (31.5-36.5); Mean Corpuscular Volume 96 fL (80-100); Mean Platelet Volume 11.8 fL (9.1-12.4); NEUTROPHILS ABSOLUTE AUTO 4.72 K/mm3 (1.96-9.15); NEUTROPHILS PERCENT AUTO 80 % (41-73); Platelet Count 108 K/mm3 (150-400); RDW Coefficient Variation 15.3 % (11.7-14.2); RDW Standard Deviation 54.3 fL (35.1-46.3); Red Blood Cell Count 4.04 M/mm3 (4.30-5.90); White Blood Cell Count 5.92 K/mm3 (4.00-11.30)
[2023-12-17 16:34] LABS: Albumin, Blood 2.9 g/dL (3.4-5.0); Albumin/Globulin Ratio 0.6 (0.8-1.8); Bilirubin, Total 0.9 mg/dL (0.1-1.0); Bun/Creatinine Ratio 34.3 (12.0-20.0); Calcium, Blood 8.3 mg/dL (8.5-10.1); Creatinine, Blood 0.93 mg/dL (0.60-1.20); Globulin, Blood 4.5 g/dL (2.2-4.0); Potassium, Blood 4.2 mmol/L (3.5-5.5); Total Protein, Blood 7.4 g/dL (6.4-8.2)
[2023-12-17 17:00] LABS: Influenza A, PCR NEGATIVE (NEGATIVE); Influenza B, PCR NEGATIVE (NEGATIVE); Resp Syncytial Virus, PCR NEGATIVE (NEGATIVE)
[2023-12-17 17:55] LABS: Source, Urine Straight Cath
[2023-12-17 18:09] LABS: Appearance, Urine Hazy (Clear); Bilirubin, Urine Neg (Neg); Blood, Urine 4+ (Neg); Color, Urine Yellow (P-Yellow); Glucose Qualitative, Urine Neg (Neg); Ketones, Urine Neg (Neg); Leukocyte Esterase, Urine 2+ (Neg); Nitrite, Urine Neg (Neg); Protein, Urine 2+ (Neg); Specific Gravity, Urine 1.015 (1.003-1.022); Urobilinogen, Urine NORM (Normal)
[2023-12-17 18:22] LABS: Red Blood Cells, Urine 25-50 /hpf (0-2)
[2023-12-17 18:23] LABS: Bacteria Few /hpf; Squamous Epithelial Cells Rare /hpf (Few)
[2023-12-17 18:28] LABS: SARS-Cov-2 (COVID-19) PCR, MMC POSITIVE (NEGATIVE)
[2023-12-17 19:05] VITALS: BP 126/66
== END 2023-12-17 19:31 | disposition home or self-care (01) ==
LOC: ER 15:10
PROVIDERS: Emergency Medicine
DX: U07.1 COVID-19 (principal); I10 Essential (primary) hypertension; E78.5 Hyperlipidemia, unspecified; E03.9 Hypothyroidism, unspecified; N40.0 Benign prostatic hyperplasia without lower urinary tract symptoms; Z95.810 Presence of automatic (implantable) cardiac defibrillator; Z88.2 Allergy status to sulfonamides; Z79.890 Hormone replacement therapy; Z79.899 Other long term (current) drug therapy
CPT/HCPCS: 0241U; 80053; 81001; 84484; 85025; 87086; 96360-59; 99285-25; J7120

== ENCOUNTER 2024-01-06 10:55 | Day surgery (SDC) | payer OTHER ==
[2024-01-06] VITALS (7 sets, daily range): BP systolic 107–129; BP diastolic 62–70
[~2024-01-06] VITALS: Ht 188 cm; Wt 93.1 kg
[~2024-01-06 10:55] MED LIST changes: +C COMPLEX1000 M1 PO; +LOSA25 PO; +VITAMIN B COMPLEX PO; +Vitamin D1000 UNI1 PO; +[UNRECOGNIZED DRUG - OTHER] PO
[2024-01-06] MEDS ORDERED: NS 1,000 ML IV ONE ×2 (12:29→12:42)
[2024-01-06] MEDS ORDERED: Heparin Sodium 1000 Units/ML 10ML MDV ONE ×2 (12:29→14:11)
[2024-01-06] MEDS ORDERED: NS 250 ML IV ONE ×2 (12:29→12:33)
[2024-01-06] MEDS ORDERED: Nitroglycerin 2 MG/20 ML BTL ONE (12:29)
[2024-01-06] MEDS ORDERED: FentaNYL Citrate 50 MCG/ML 2 ML Injection ONE (12:42)
[2024-01-06] MEDS ORDERED: Midazolam HCl 1MG / ML 2ML Vial ONE (12:42)
--- NOTE | 2024-01-06 14:30 | NUR ---
pt returns to recover room, drowsy, but able to answer questions. pt remains supine in bed at this time. L groin site wnl, angioseal in place no oozing no hematoma. pt. vss upon arrival to recovery room
--- NOTE | 2024-01-06 15:00 | NUR ---
L groin site checked frequently. Bear hugger in place for pt comfort. Pt L groin stire remains unchanged from previous assessment. WNL at this time. pt. resting comfortably in bed at this time. water provided.
--- NOTE | 2024-01-06 15:30 | NUR ---
pt Hob elevated to 30 degrees. food and beverages provided for pt. pt. sitting up eating. L groin site remains wnl, no oozing no hematoma. vss.
--- NOTE | 2024-01-06 16:31 | NUR ---
Assisted pt to arrange ride home. pt site remains wnl, no oozing no hematoma.
[2024-01-20] MEDS ORDERED: MAGNESIUM GLUCONATE (07:58)
== END 2024-01-06 23:08 | disposition home or self-care (01) ==
LOC: MHTC 10:55
DX: I70.223 Atherosclerosis of native arteries of extremities with rest pain, bilateral legs (principal); L03.116 Cellulitis of left lower limb; L97.522 Non-pressure chronic ulcer of other part of left foot with fat layer exposed; I10 Essential (primary) hypertension; E03.9 Hypothyroidism, unspecified; I25.10 Atherosclerotic heart disease of native coronary artery without angina pectoris; Z87.891 Personal history of nicotine dependence; Z88.2 Allergy status to sulfonamides; Z88.8 Allergy status to other drugs, medicaments and biological substances; Z79.899 Other long term (current) drug therapy
CPT/HCPCS: 36200; 36247; 37228; 37232; 75625; 75716; 75774; 76937; 99152; 99153; C1725; C1760; C1769; C1887; C1894; J1644; J2250; J3010; J7030; J7050; Q9967

== ENCOUNTER 2024-01-20 08:55 | Day surgery (SDC) | payer OTHER ==
[~2024-01-20] VITALS: Ht 188 cm; Wt 91.0 kg
[2024-01-20] VITALS (10 sets, daily range): BP systolic 99–121; BP diastolic 39–65
[~2024-01-20 08:55] MED LIST changes: +MAGNESIUM GLUCONATE
[2024-01-20 09:43] LABS: BASOPHILS ABSOLUTE AUTO 0.01 K/mm3 (0.00-0.23); BASOPHILS PERCENT AUTO 0 % (0-2); EOSINOPHILS ABSOLUTE AUTO 0.07 K/mm3 (0.00-0.68); EOSINOPHILS PERCENT AUTO 1 % (0-6); Hematocrit 33.4 % (37.0-53.0); IMMATURE GRAN ABSOLUTE AUTO 0.03 K/mm3 (0.00-0.10); IMMATURE GRAN PERCENT AUTO 1 % (0-1); LYMPHOCYTES ABSOLUTE AUTO 0.92 K/mm3 (0.84-5.20); LYMPHOCYTES PERCENT AUTO 19 % (21-46); MONOCYTES ABSOLUTE AUTO 0.51 K/mm3 (0.16-1.47); MONOCYTES PERCENT AUTO 11 % (4-13); Mean Corpuscular HGB 31.2 pg (26.0-34.0); Mean Corpuscular HGB Conc 32.9 g/dL (31.5-36.5); Mean Corpuscular Volume 95 fL (80-100); Mean Platelet Volume 11.5 fL (9.1-12.4); NEUTROPHILS ABSOLUTE AUTO 3.31 K/mm3 (1.96-9.15); NEUTROPHILS PERCENT AUTO 68 % (41-73); Platelet Count 109 K/mm3 (150-400); RDW Coefficient Variation 15.6 % (11.7-14.2); RDW Standard Deviation 53.9 fL (35.1-46.3); Red Blood Cell Count 3.53 M/mm3 (4.30-5.90); White Blood Cell Count 4.85 K/mm3 (4.00-11.30)
[2024-01-20 09:55] LABS: International Normalized Ratio 1.17; Prothrombin Time Results 12.4 Sec (9.7-11.5)
[2024-01-20 10:04] LABS: Bun/Creatinine Ratio 35.3 (12.0-20.0); Calcium, Blood 8.3 mg/dL (8.5-10.1); Creatinine, Blood 0.94 mg/dL (0.60-1.20); Potassium, Blood 4.2 mmol/L (3.5-5.5)
--- NOTE | 2024-01-20 10:15 | NUR ---
DR OCONNOR AWARE PT ATE TWO [facility] AT 0600 THIS MORNING.
[2024-01-20] MEDS ORDERED: NS 1,000 ML IV ONE ×2 (10:43→11:05)
[2024-01-20] MEDS ORDERED: Heparin Sodium 1000 Units/ML 10ML MDV ONE ×2 (10:43→12:40)
[2024-01-20] MEDS ORDERED: NS 250 ML IV ONE (10:43)
[2024-01-20] MEDS ORDERED: Nitroglycerin 2 MG/20 ML BTL ONE (10:44)
[2024-01-20] MEDS ORDERED: Midazolam HCl 1MG / ML 2ML Vial ONE (11:05)
[2024-01-20] MEDS ORDERED: FentaNYL Citrate 50 MCG/ML 2 ML Injection ONE ×2 (11:05→13:26)
--- NOTE | 2024-01-20 14:34 | NUR ---
PT BACK TO RECOVERY ROOM. PT REMINDED TO KEEP LEFT LEG AND NECK DOWN. PT GIVEN WARM BLANKETS AND BEAR HUGGER FOR COMFORT. PT ATTEMPTS TO REPOSITION COMFORT.
[2024-01-20] MEDS ORDERED: Ketorolac Tromethamine 30mg Vial ONE (14:43)
--- NOTE | 2024-01-20 14:49 | NUR ---
PT GIVEN TORADOL FOR BACK DISCOMFORT. PT GIVEN SIPS OF WATER. BUT REMINDED TO KEEP HEAD FLAT.
--- NOTE | 2024-01-20 15:50 | NUR ---
NO NEW BLEEDING TO NEW DRESSING. NO HEMATOMA.
--- NOTE | 2024-01-20 16:15 | NUR ---
R FEMORAL SITE OOZED. NO ACTIVE BLEEDING. PRESSURE HELD AND NEW DRESSING PLACED. NO HEMATOMA NOTED.
--- NOTE | 2024-01-20 17:03 | NUR ---
PT DRESSED, IV D/C CATHETER INTACT. PT VERBALIZE D/C INSTRUCITONS. WAITING FOR [facility].
[2024-01-20] MEDS ORDERED: Acetaminophen 325 MG TABLET ONE (17:10)
[2024-01-20] MEDS ORDERED: Acetaminophen 325 MG TABLET PO ONE (17:10)
== END 2024-01-20 17:50 | disposition home or self-care (01) ==
LOC: MHTC 08:55
PROVIDERS: Radiology Diagnostic Radiology
DX: I70.223 Atherosclerosis of native arteries of extremities with rest pain, bilateral legs (principal); L97.522 Non-pressure chronic ulcer of other part of left foot with fat layer exposed; L97.519 Non-pressure chronic ulcer of other part of right foot with unspecified severity; I25.10 Atherosclerotic heart disease of native coronary artery without angina pectoris; I10 Essential (primary) hypertension; E03.9 Hypothyroidism, unspecified; Z87.891 Personal history of nicotine dependence; Z88.2 Allergy status to sulfonamides; Z88.8 Allergy status to other drugs, medicaments and biological substances; Z79.890 Hormone replacement therapy; Z79.899 Other long term (current) drug therapy
CPT/HCPCS: 36200; 36247; 75625; 75716; 75774; 76937; 80048; 85025; 85610; 99152; 99153; A9270; C1725; C1760; C1769; C1887; C1894; C9772; J1644; J1885; J2250; J3010; J7030; J7050; Q9967